=== PATIENT | male | born 1990 | race Caucasian/White ===

== ENCOUNTER 2016-08-24 23:11 | Emergency (ER) ==
[2016-08-24 23:11] VITALS: BMI 41.8
[2016-08-24 23:21] VITALS: BP 130/85; TEMP 98.5
--- NOTE | 2016-08-24 23:30 | ED.PDOC ---
General ED Provider: Dr. SHO JOHNSON Chief Complaint: Ankle Pain/Injury Stated Complaint: Patients states that he Woke up this morning with left ankle and foot swollen, red and unable to bear weight. States that he doest not what could have happened to it. No known injury. [place] but does no remember injuring it. Take Medicial marijuana for pain. Rates tht pain at 9/10 with weight bearing and 5 at rest. Time Seen by Physician: 23:30 Mode of Arrival: Wheelchair Information Source: Patient Exam Limitations: No limitations Primary Care Provider: [facility] Nursing and Triage Documentation Reviewed and Agree: Yes Musculoskeletal Complaint Exam - Ankle/Foot Complaint/Exam Location of Injury: Reports: Left, Ankle, Foot Mechanism of Injury: Reports: No known trauma Onset/Duration: 1 day Symptoms Are: Reports: Still present Initial Severity: Moderate Current Severity: Severe Location: Reports: Diffuse (but mostly on the alteral mid foot close to the ankle) Character: Reports: Aching, Throbbing Alleviating: Reports: Rest Aggravating: Reports: Movement, Weight bearing, Prolonged standing Able to Bear Weight: Yes Associated Signs and Symptoms: Reports: Swelling, Redness (warmth) Gout Risk Factors: Reports: Male, Obesity. Denies: >40 years old Related Surgical History: Reports: Other Orthopedic Surgery Lower Extremity Findings: Present: Swelling, Erythema, Warmth, Tenderness, Limited range of motion Achilles Tendon Abnormality: No Tenderness: Present: Lateral malleolus, Midfoot Limited Range of Motion: Present: Inversion, Eversion, Dorsiflexion, Plantarflexion Ankle/Foot Picture: 1 - area of pain and tenderness with some swelling Differential Diagnosis: Contusion, Closed Fracture, Sprain, Strain, Tendonitis Review of Systems - Review Of Systems Constitutional: Reports: No symptoms Musculoskeletal: Reports: Joint pain, Joint swelling All Other Systems: Reviewed and Negative Past Medical History - Past Medical History Previously Healthy: Yes Endocrine: Reports: None Cardiovascular: Reports: None Respiratory: Reports: None Hematological: Reports: None Gastrointestinal: Reports: None Genitourinary: Reports: Kidney stones Neuro/Psych: Reports: None Musculoskeletal: Reports: Back Pain Cancer: Reports: None - Surgical History General Surgical History: Reports: Back Surgery - Family History Family History: Reports: None - Social History Smoking Status: Current every day smoker, Light tobacco smoker Hx Substance Use: Yes (Medical Marijuana) Alcohol Screening: None - Immunizations Tetanus Shot up to Date: No (unsure) Physical Exam - Physical Exam Appearance: Ill-appearing, Obese Ill-appearing: Mild Pain Distress: Severe Neck: Supple Respiratory: Airway patent, Breath sounds clear, Breath sounds equal, Respirations nonlabored Cardiovascular: RRR, Pulses normal, No rub, No murmur GI/: Soft, Nontender, No masses, Bowel sounds normal, No Organomegaly Musculoskeletal: Normal strength, No calf tenderness, Limited ROM, Edema Skin: Warm, Dry, Normal color Neurological: Sensation intact, Motor intact, Reflexes intact, Cranial nerves intact, Alert, Oriented Psychiatric: Anxious Interpretation - Radiology Interpretation Radiology Interpretation By: Radiologist Radiology Results: Negative Exam Interpreted: Other (Ankle and foot x ray except calcanious enthisopathy ) Re-Evaluation - Re-Evaluation Time of Re-Evaluation: 00:27 Status: Improved Pain Level: 06/14 Additional Comments: has some increased mobidity on the left foot. Critical Care Note - Critical Care Note Total Time (mins): 0 Course - Course Hematology/Chemistry: 08/24/16 23:39 08/24/16 23:39 Orders, Labs, Meds: Lab Review 08/24/16 23:39 WBC 10.82 H RBC 5.69 Hgb 16.6 Hct 47.8 MCV 84.0 MCH 29.2 MCHC 34.7 RDW Coeff of Nevaeh 13.2 Plt Count 206 Immature Gran % (Auto) 0.3 Neut % (Auto) 66.4 Lymph % (Auto) 22.6 [place] % (Auto) 7.7 Eos % (Auto) 2.7 Baso % (Auto) 0.3 Immature Gran # (Auto) 0.0 Neut # 7.2 H Lymph # 2.5 [place] # 0.8 Eos # 0.3 Baso # 0.0 Sodium 138 Potassium 3.6 Chloride 103 Carbon Dioxide 26 Anion Gap 12.6 BUN 12 Creatinine 0.86 Estimated GFR (MDRD) 107.00 BUN/Creatinine Ratio 13.95 Glucose 116 H Uric Acid 8.5 H Calcium 9.4 Total Bilirubin 0.89 AST 18 ALT 26 Alkaline Phosphatase 65 Total Protein 7.1 Albumin 3.7 Globulin 3.4 Albumin/Globulin Ratio 1.09 Orders Category Date Time Status CBC W/ AUTO DIFF Stat LAB 08/24/16 23:39 Completed COMPREHENSIVE METABOLIC PANEL Stat LAB 08/24/16 23:39 Completed URIC ACID Stat LAB 08/24/16 23:39 Completed Colchicine [Colcrys] MEDS 08/25/16 00:04 Discontinued 1.2 mg PO ONCE STA Ketorolac Tromethamine [Toradol] MEDS 08/24/16 23:31 Discontinued 60 mg IM ONCE STA ANKLE, LEFT MIN 3 VIEWS Stat RADS 08/24/16 23:31 Completed FOOT, LEFT 3 VIEWS Stat RADS 08/24/16 23:31 Completed Medications Discontinued Medications Generic Name Dose Route Start Last Admin Trade Name Freq PRN Reason Stop Dose Admin Colchicine 1.2 mg 08/25/16 00:04 08/25/16 00:18 Colcrys PO 08/25/16 00:05 1.2 mg ONCE STA Administration Ketorolac Tromethamine 60 mg 08/24/16 23:31 08/24/16 23:39 Toradol IM 08/24/16 23:32 60 mg ONCE STA Administration Vital Signs: Temp Pulse Resp BP Pulse Ox 08/24/16 23:14 98.5 F 90 20 130/85 96 Departure - Departure Time of Disposition: 00:24 Disposition: HOME SELF-CARE Discharge Problem: Ankle pain, Gout attack Instructions: Gout (ED) Condition: Fair Pt referred to PMD for follow-up: Yes Additional Instructions: Follow up with PCP in 1 week take Indocin as prescribed Follow Low purine diet Prescriptions: Indomethacin [Indocin] 25 mg PO TIDWM #40 capsule Allergies/Adverse Reactions: Allergies promethazine HCl [From Phenergan] Adverse Reaction (Verified 08/24/16 23:21) Home Medications: Ambulatory Orders Medical Katie PRN 12/04/15 Indomethacin [Indocin] 25 mg PO TIDWM #40 capsule 08/25/16 Disposition Discussed With: Patient, Family
[2016-08-24] MEDS ORDERED: TORADOL IM STA (23:31)
[2016-08-24 23:40] LABS: BASOPHILS % (AUTO) 0.3 % (0.0-3.0); EOSINOPHILS # (AUTO) 0.3 K/ul (0.0-0.7); EOSINOPHILS % (AUTO) 2.7 % (0.0-7.0); HEMATOCRIT 47.8 % (42.0-52.0); HEMOGLOBIN 16.6 g/dl (14.0-18.0); IMMATURE GRANULOCYTE % (AUTO) 0.3 % (0.0-5.0); LYMPHOCYTES # (AUTO) 2.5 K/uL (0.60-3.4); LYMPHOCYTES % (AUTO) 22.6 (10.0-50.0); MEAN CORPUSCULAR HEMOGLOBIN 29.2 pg (27.0-31.0); MEAN CORPUSCULAR HGB CONC 34.7 (31.8-35.4); MONOCYTES # (AUTO) 0.8 K/uL (0.4-2.0); MONOCYTES % (AUTO) 7.7 (0-10); NEUTROPHILS # (AUTO) 7.2 K/ul (2.0-6.9); NEUTROPHILS % (AUTO) 66.4; PLATELET COUNT 206 10^3/uL (140-440); RED BLOOD COUNT 5.69 10^6/ul (4.70-6.10); WHITE BLOOD COUNT 10.82 K/ul (4.2-10.2)
[2016-08-24 23:59] LABS: ALBUMIN 3.7 g/dL (3.4-5.0); ALBUMIN/GLOBULIN RATIO 1.09; ANION GAP 12.6; CALCIUM 9.4 mg/dL (8.2-10.2); POTASSIUM 3.6 mmol/L (3.5-5.1); TOTAL PROTEIN 7.1 g/dL (6.4-8.2)
[2016-08-25] LABS: BILIRUBIN,TOTAL 0.89 mg/dL (0.00-1.20); BUN/CREATININE RATIO 13.95; CREATININE 0.86 mg/dL (0.60-1.10); URIC ACID 8.5 mg/dL (2.6-7.2)
[2016-08-25] MEDS ORDERED: COLCRYS PO STA (00:04)
--- NOTE | 2016-08-25 00:15 | DI ---
EXAM: Three views left ankle. HISTORY: Ankle pain. FINDINGS: The bones are intact with no evidence of fracture. The joint spaces are maintained. There is soft tissue swelling in the ankle. Impression: No evidence of fracture. Soft tissue swelling as described.
--- NOTE | 2016-08-25 00:16 | DI ---
EXAM: Three views of the left foot. HISTORY: Foot pain. FINDINGS: The bones are intact with no evidence of fracture. The joint spaces are maintained. Ther e is an enthesophyte on the plantar margin of the calcaneus. There is dorsal soft tissue swelling in the midfoot. Impression: No evidence of fracture. Calcaneal enthesophyte. Soft tissue swelling as described.
== END 2016-08-25 00:45 | disposition home or self-care (01) ==
LOC: ED 23:11
DX: M25.572 Pain in left ankle and joints of left foot (principal); M10.9 Gout, unspecified; F17.210 Nicotine dependence, cigarettes, uncomplicated
CPT/HCPCS: 36415; 80053; 84550; 85025; 96372; 99283